=== PATIENT | male | born 1960 | race Asian ===

== ENCOUNTER 2019-05-03 14:31 | Inpatient (IN) | payer OTHER ==
[~2019-05-03] VITALS: Ht 167.6 cm; Wt 74.4 kg
[2019-05-03 14:37] VITALS: BP 149/80
[2019-05-03 15:37] LABS: EOSINOPHILS % (AUTO) 0.8 % (0.0-3.0); HEMATOCRIT 45.5 % (42.0-52.0); HEMOGLOBIN 15.2 G/DL (14.2-18.0); LYMPHOCYTES % (AUTO) 15.8 % (20.0-45.0); MEAN CORPUSCULAR VOLUME 91 FL (80-99); MONOCYTES % (AUTO) 7.6 % (1.0-10.0); NEUTROPHILS % (AUTO) 74.8 % (45.0-75.0); PLATELET COUNT 252 K/UL (150-450); RED BLOOD COUNT 4.99 M/UL (4.70-6.10); RED CELL DISTRIBUTION WIDTH 11.8 % (11.6-14.8); WHITE BLOOD COUNT 10.6 K/UL (4.8-10.8)
[2019-05-03 15:54] LABS: ANION GAP 7 mmol/L (5-15); BLOOD UREA NITROGEN 12 mg/dL (7-18); CALCIUM 8.6 MG/DL (8.5-10.1); CARBON DIOXIDE 31 MMOL/L (21-32); CHLORIDE 104 MMOL/L (98-107); CREATININE 1.2 MG/DL (0.55-1.30); POTASSIUM 4.3 MMOL/L (3.5-5.1); SODIUM 142 MMOL/L (136-145)
[2019-05-03 15:56] LABS: APPEARANCE,URINE CLEAR; BILIRUBIN, URINE NEGATIVE (NEGATIVE); COLOR,URINE PALE YELLOW; GLUCOSE, URINE (UA) NEGATIVE (NEGATIVE); KETONES,URINE 2+ (NEGATIVE); LEUKOCYTE ESTERASE ,URINE NEGATIVE (NEGATIVE); NITRITE,URINE NEGATIVE (NEGATIVE); PH,URINE 5 (4.5-8.0); PROTEIN,URINE NEGATIVE (NEGATIVE); UROBILINOGEN,URINE NORMAL MG/DL (0.0-1.0)
[2019-05-03 15:59] LABS: ALANINE AMINOTRANSFERASE 30 U/L (12-78); ALBUMIN 3.8 G/DL (3.4-5.0); ALBUMIN/GLOBULIN RATIO 1.1 (1.0-2.7); ALKALINE PHOSPHATASE 76 U/L (46-116); ASPARTATE AMINO TRANSFERASE 21 U/L (15-37); BILIRUBIN,TOTAL 0.5 MG/DL (0.2-1.0)
[2019-05-03 17:15] VITALS: BP 151/87
--- NOTE | 2019-05-03 18:26 | Diagnostic Imaging Report ---
Indication: Bilateral leg pain and weakness for 2 days Technique: Sagittal T1 and T2 fast spin echo, sagittal STIR, axial T1 and T2 fast spin-echo images of the lumbar spine Comparison: none Findings: The vertebral body marrow signal is normal. Vertebral body heights are preserved. Bony alignment is normal. The disc spaces are preserved. Conus medullaris terminates at L1. There is minimal circumferential annular bulge of the L5-S1 disc. There is a focal high intensity zone posteriorly. The bulging disc does not result in any significant spinal canal stenosis. The neural foramina are preserved At the remaining disc levels, no significant disc bulge or protrusion, spinal stenosis, or neural foraminal stenosis. 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
--- NOTE | 2019-05-03 19:07 | Emergency Room Report ---
History of Present Illness General Chief Complaint: General Complaint Source: EMS Present Illness HPI 58-year-old male presents ED for evaluation. Brought in from home for generalized weakness. States he feels weak primarily in his lower legs. Right more than left. States he is unable to walk and falls if he tries to walk. Denies any back pain. Notes history of fibromyalgia but denies any pain at this point. Denies fevers or chills. Denies slurred speech or facial droop. No other aggravating relieving factors. Denies any other associated symptoms Allergies: Coded Allergies: No Known Allergies (Unverified , 05/03/19) Patient History Past Medical History: none Past Surgical History: none Pertinent Family History: none Social History: Denies: smoking, alcohol use, drug use Immunizations: UTD Reviewed Nursing Documentation: PMH: Agreed; PSxH: Agreed Nursing Documentation-PMH Past Medical History: No History, Except For Review of Systems All Other Systems: negative except mentioned in HPI Physical Exam Vital Signs Date Time Temp Pulse Resp B/P (MAP) Pulse Ox O2 Delivery O2 Flow Rate FiO2 05/03/19 14:26 98.8 76 16 150/76 (100) 98 Room Air Sp02 EP Interpretation: reviewed, normal General Appearance: no apparent distress, alert, GCS 15, non-toxic Head: normocephalic, atraumatic Eyes: bilateral eye normal inspection, bilateral eye PERRL ENT: hearing grossly normal, normal pharynx, no angioedema, normal voice Neck: full range of motion, supple/symm/no masses Respiratory: chest non-tender, lungs clear, normal breath sounds, speaking full sentences Cardiovascular #1: regular rate, rhythm, no edema Cardiovascular #2: 2+ carotid (R), 2+ carotid (L), 2+ radial (R), 2+ radial (L) , 2+ dorsalis pedis (R), 2+ dorsalis pedis (L) Gastrointestinal: normal bowel sounds, non tender, soft, non-distended, no guarding, no rebound Rectal: deferred Genitourinary: normal inspection, no CVA tenderness Musculoskeletal: back normal, normal range of motion, gait/station normal, non- tender Neurologic: alert, oriented x3, sensory intact, motor weakness - 3/5 strength RLE, responsive, speech normal Psychiatric: judgement/insight normal, memory normal, mood/affect normal, no suicidal/homicidal ideation Reflexes: 3+ bicep (R), 3+ bicep (L), 3+ tricep (R), 3+ tricep (L), 3+ knee (R) , 3+ knee (L) Skin: other - see nursing skin notes Lymphatic: no adenopathy Medical Decision Making Diagnostic Impression: Primary Impression: Right leg weakness Additional Impression: Unsteady gait ER Course Hospital Course 58 yo M presents with RLE weakness. unable to walk Differential diagnoses include: cord compession, spinal stenosis, dehydration Clinical course Patient placed on stretcher. hall monitor. After initial history and physical I ordered labs, IV fluids, MRI L spine Labs - no leukocytosis, Hb/Hct stable. electrolytes ok. MRI L spine shows disk bulging, no cord compression patient is still unable to bear weight on right lower extremity. Unsteady gait. Has noticeable neurological deficit. Not safe for discharge. [facility] Case discussed with Dr. Lujan and he agreed to accept the patient to his service for further care and support I feel this is a highly complex case requiring extensive working including EKG/ Rhythm strip, Xray/CT/US, Blood/urine lab work, repeat exams while in ED, and administration of strong opiates/narcotics for pain control, admission to hospital or close patient follow up. Diagnosis - R leg weakness, unsteady gait Patient admitted to floor in serious condition Labs Test 05/03/19 15:10 05/03/19 15:44 White Blood Count 10.6 K/UL (4.8-10.8) Red Blood Count 4.99 M/UL (4.70-6.10) Hemoglobin 15.2 G/DL (14.2-18.0) Hematocrit 45.5 % (42.0-52.0) Mean Corpuscular Volume 91 FL (80-99) Mean Corpuscular Hemoglobin 30.5 PG (27.0-31.0) Mean Corpuscular Hemoglobin Concent 33.5 G/DL (32.0-36.0) Red Cell Distribution Width 11.8 % (11.6-14.8) Platelet Count 252 K/UL (150-450) Mean Platelet Volume 7.5 FL (6.5-10.1) Neutrophils (%) (Auto) 74.8 % (45.0-75.0) Lymphocytes (%) (Auto) 15.8 % (20.0-45.0) Monocytes (%) (Auto) 7.6 % (1.0-10.0) Eosinophils (%) (Auto) 0.8 % (0.0-3.0) Basophils (%) (Auto) 1.0 % (0.0-2.0) Sodium Level 142 MMOL/L (136-145) Potassium Level 4.3 MMOL/L (3.5-5.1) Chloride Level 104 MMOL/L (98-107) Carbon Dioxide Level 31 MMOL/L (21-32) Anion Gap 7 mmol/L (5-15) Blood Urea Nitrogen 12 mg/dL (7-18) Creatinine 1.2 MG/DL (0.55-1.30) Estimat Glomerular Filtration Rate > 60 mL/min (>60) Glucose Level 101 MG/DL (74-106) Calcium Level 8.6 MG/DL (8.5-10.1) Total Bilirubin 0.5 MG/DL (0.2-1.0) Aspartate Amino Transf (AST/SGOT) 21 U/L (15-37) Alanine Aminotransferase (ALT/SGPT) 30 U/L (12-78) Alkaline Phosphatase 76 U/L (46-116) Total Protein 7.2 G/DL (6.4-8.2) Albumin 3.8 G/DL (3.4-5.0) Globulin 3.4 g/dL Albumin/Globulin Ratio 1.1 (1.0-2.7) Urine Color Pale yellow Urine Appearance Clear Urine pH 5 (4.5-8.0) Urine Specific [place] 1.010 (1.005-1.035) Urine Protein Negative (NEGATIVE) Urine Glucose (UA) Negative (NEGATIVE) Urine Ketones 2+ (NEGATIVE) Urine Blood Negative (NEGATIVE) Urine Nitrite Negative (NEGATIVE) Urine Bilirubin Negative (NEGATIVE) Urine Urobilinogen Normal MG/DL (0.0-1.0) Urine Leukocyte Esterase Negative (NEGATIVE) CT/MRI/US Diagnostic Results CT/MRI/US Diagnostic Results : Imaging Test Ordered: MRI L spine Impression No acute fracture identified. Mild facet degenerative changes and ligamentum flavum hypertrophy throughout the lumbar spine. Annular fissure at L5-S1. Mild disc bulge at L5-S1. No significant spinal canal stenosis. Mild bilateral neural foraminal stenoses at L4-5. Conus medullaris terminates normally at the level of T12-L1. Last Vital Signs Date Time Temp Pulse Resp B/P (MAP) Pulse Ox O2 Delivery O2 Flow Rate FiO2 05/03/19 17:15 98.6 84 20 151/87 96 Room Air Status: unchanged Disposition: ADMITTED INPATIENT Condition: Serious Referrals: NOT CHOSEN IPA/,REFERRING (PCP) Domingo Muniz MD May 03, 2019 19:07
[2019-05-03 21:00] VITALS: BP 145/79
[2019-05-03] MEDS ORDERED: Morphine Sulfate 2mg/ml Inj(IV/IM USE ONLY) IVP PRN (21:30)
[2019-05-03] MEDS: D5 1/2NS 1,000 ML IV SCH (22:01)
[2019-05-04] VITALS: BP 131/65
[2019-05-04 04:00] VITALS: BP 125/76
[2019-05-04 07:16] LABS: BASOPHILS % (AUTO) 1.1 % (0.0-2.0); EOSINOPHILS % (AUTO) 2.3 % (0.0-3.0); HEMATOCRIT 44.3 % (42.0-52.0); HEMOGLOBIN 15.2 G/DL (14.2-18.0); LYMPHOCYTES % (AUTO) 23.2 % (20.0-45.0); MEAN CORPUSCULAR VOLUME 89 FL (80-99); MONOCYTES % (AUTO) 9.3 % (1.0-10.0); NEUTROPHILS % (AUTO) 64.1 % (45.0-75.0); PLATELET COUNT 253 K/UL (150-450); RED BLOOD COUNT 4.95 M/UL (4.70-6.10); RED CELL DISTRIBUTION WIDTH 11.3 % (11.6-14.8); WHITE BLOOD COUNT 10.6 K/UL (4.8-10.8)
[2019-05-04 07:35] LABS: ANION GAP 6 mmol/L (5-15); BLOOD UREA NITROGEN 12 mg/dL (7-18); CALCIUM 8.4 MG/DL (8.5-10.1); CARBON DIOXIDE 29 MMOL/L (21-32); CHLORIDE 106 MMOL/L (98-107); POTASSIUM 3.7 MMOL/L (3.5-5.1); SODIUM 141 MMOL/L (136-145)
[2019-05-04 08:00] VITALS: BP 144/77
[2019-05-04] MEDS ORDERED: Methocarbamol 500mg tab ORAL PRN (09:15)
--- NOTE | 2019-05-04 09:15 | Consultation ---
History of Present Illness General Date patient seen: May 04, 2019 Chief Complaint: Present Illness Allergies: Coded Allergies: No Known Allergies (Unverified , 05/03/19) Patient History Healthcare decision maker N Resuscitation status Full Code Advanced Directive on File Physical Exam Last 24 Hour Vital Signs Date Time Temp Pulse Resp B/P (MAP) Pulse Ox O2 Delivery O2 Flow Rate FiO2 05/04/19 04:00 98.3 54 20 125/76 (92) 97 05/04/19 00:00 98.7 60 19 131/65 (87) 96 05/03/19 23:25 Room Air 05/03/19 21:00 98.2 56 18 145/79 (101) 96 05/03/19 20:42 98.6 84 20 151/87 96 Room Air 05/03/19 17:15 98.6 84 20 151/87 96 Room Air 05/03/19 14:37 98.2 79 15 149/80 99 Room Air 05/03/19 14:34 79 15 Room Air 05/03/19 14:26 98.8 76 16 150/76 (100) 98 Room Air Intake and Output 05/03/19 05/04/19 19:00 07:00 Intake Total 1000 ml 780 ml Balance 1000 ml 780 ml Intake Oral 0 ml 300 ml IV Total 1000 ml 480 ml # Voids 1 # Bowel Movements 1 Laboratory Tests Test 05/03/19 15:10 05/03/19 15:44 05/04/19 05:28 White Blood Count 10.6 K/UL (4.8-10.8) 10.6 K/UL (4.8-10.8) Red Blood Count 4.99 M/UL (4.70-6.10) 4.95 M/UL (4.70-6.10) Hemoglobin 15.2 G/DL (14.2-18.0) 15.2 G/DL (14.2-18.0) Hematocrit 45.5 % (42.0-52.0) 44.3 % (42.0-52.0) Mean Corpuscular Volume 91 FL (80-99) 89 FL (80-99) Mean Corpuscular Hemoglobin 30.5 PG (27.0-31.0) 30.8 PG (27.0-31.0) Mean Corpuscular Hemoglobin Concent 33.5 G/DL (32.0-36.0) 34.4 G/DL (32.0-36.0) Red Cell Distribution Width 11.8 % (11.6-14.8) 11.3 % (11.6-14.8) L Platelet Count 252 K/UL (150-450) 253 K/UL (150-450) Mean Platelet Volume 7.5 FL (6.5-10.1) 7.8 FL (6.5-10.1) Neutrophils (%) (Auto) 74.8 % (45.0-75.0) 64.1 % (45.0-75.0) Lymphocytes (%) (Auto) 15.8 % (20.0-45.0) L 23.2 % (20.0-45.0) Monocytes (%) (Auto) 7.6 % (1.0-10.0) 9.3 % (1.0-10.0) Eosinophils (%) (Auto) 0.8 % (0.0-3.0) 2.3 % (0.0-3.0) Basophils (%) (Auto) 1.0 % (0.0-2.0) 1.1 % (0.0-2.0) Sodium Level 142 MMOL/L (136-145) 141 MMOL/L (136-145) Potassium Level 4.3 MMOL/L (3.5-5.1) 3.7 MMOL/L (3.5-5.1) Chloride Level 104 MMOL/L (98-107) 106 MMOL/L (98-107) Carbon Dioxide Level 31 MMOL/L (21-32) 29 MMOL/L (21-32) Anion Gap 7 mmol/L (5-15) 6 mmol/L (5-15) Blood Urea Nitrogen 12 mg/dL (7-18) 12 mg/dL (7-18) Creatinine 1.2 MG/DL (0.55-1.30) 1.0 MG/DL (0.55-1.30) Estimat Glomerular Filtration Rate > 60 mL/min (>60) > 60 mL/min (>60) Glucose Level 101 MG/DL (74-106) 90 MG/DL (74-106) Calcium Level 8.6 MG/DL (8.5-10.1) 8.4 MG/DL (8.5-10.1) L Total Bilirubin 0.5 MG/DL (0.2-1.0) Aspartate Amino Transf (AST/SGOT) 21 U/L (15-37) Alanine Aminotransferase (ALT/SGPT) 30 U/L (12-78) Alkaline Phosphatase 76 U/L (46-116) Total Protein 7.2 G/DL (6.4-8.2) Albumin 3.8 G/DL (3.4-5.0) Globulin 3.4 g/dL Albumin/Globulin Ratio 1.1 (1.0-2.7) Urine Color Pale yellow Urine Appearance Clear Urine pH 5 (4.5-8.0) Urine Specific [place] 1.010 (1.005-1.035) Urine Protein Negative (NEGATIVE) Urine Glucose (UA) Negative (NEGATIVE) Urine Ketones 2+ (NEGATIVE) H Urine Blood Negative (NEGATIVE) Urine Nitrite Negative (NEGATIVE) Urine Bilirubin Negative (NEGATIVE) Urine Urobilinogen Normal MG/DL (0.0-1.0) Urine Leukocyte Esterase Negative (NEGATIVE) Height (Feet): 5 Height (Inches): 6.00 Weight (Pounds): 164 Medications Current Medications Medications (Trade) Dose Ordered Sig/Elisa Route PRN Reason Start Time Stop Time Status Last Admin Dose Admin Dextrose/Sodium Chloride 1,000 ml @ 60 mls/hr [id number] IV 05/03/19 21:30 06/02/19 21:29 05/03/19 22:01 Morphine Sulfate (Morphine Sulfate) 2 mg Q4H PRN IVP Moderate Pain (Pain Scale 4-6) 05/03/19 21:30 05/10/19 21:29 Assessment/Plan Assessment/Plan: (1) Lumbar Disc bulge (2) Lumbar Radiculopathy (3) Annular Fissure seen dictated Jose D Rosario May 04, 2019 09:15
[2019-05-04 12:00] VITALS: BP 155/77
[2019-05-04] MEDS: D5 1/2NS 1,000 ML IV SCH (14:08)
--- NOTE | 2019-05-04 14:45 | Consultation ---
DATE OF CONSULTATION: 05/04/2019 PAIN MANAGEMENT CONSULTATION CONSULTING PHYSICIAN: Betty Dixon M.D. REFERRING PHYSICIAN: Oscar Lujan D.O. PHYSICIAN REHABILITATION THERAPIST: Diane Noe CHIEF COMPLAINT: Right lower extremity weakness. HISTORY OF PRESENT ILLNESS: This is a 58-year-old male, who has been seen on the Med[facility]Surg floor of [facility] for initial pain management consultation. The patient was admitted under the care of Dr. Lujan with complaints of right lower extremity weakness and inability to ambulate, which he says started about 2 days ago. It has been off and on and acute, which he says at times had shooting burning pain down his right lower extremity, which is increased with walking and is reduced with rest. The patient denies any recent trauma or any recent injury and says about 2 days ago, tried to walk and felt a shooting burning pain down into his right lower extremity. No complaints of low back pain and that has dissipated at this time and is able to walk more and is walking to the bathroom in his room. 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 At this time, the patient is in bed. Denies any pain. Still has some right lower extremity weakness. He was on morphine 2 mg IV every 4 hours, which he has not requested due to not having any pain. MRI of the lumbar spine was ordered as per the ER physician showing no acute fracture identified. Mild facet degenerative changes. Ligamentum flavum hypertrophy throughout the lumbar spine. Annular fissure at L5-S1 with mild disc bulge at L5-S1. No significant spinal canal stenosis. Mild bilateral neural foraminal stenosis at L4-L5. At this time, discussed with the patient about his MRI. Advise the patient to do extensive physical therapy to strengthen up his core and back muscles and we will discontinue the morphine and start the patient on Neurontin 100 mg 3 times a day, Robaxin 500 mg tablet every 8 hours as needed for muscle spasm. The patient seems to understand and he has no other complaints at this time. PAST MEDICAL HISTORY: Aspiration, CMI, fibromyalgia, Clinch War syndrome, chronic fatigue. PAST SURGICAL HISTORY: Denies. SOCIAL HISTORY: Denies smoking tobacco, drinking alcohol, or IV drug abuse. ALLERGIES: No known drug allergies. MEDICATIONS: Aspirin. REVIEW OF SYSTEMS: Denies rash, fever, chills, sweating, dizziness, drowsiness, blurred vision, sore throat, change in hearing or weight. No shortness of breath or chest pain, palpitations, or cough. No nausea, vomiting, diarrhea, or blood in the stool or urine. No dysuria. PHYSICAL EXAMINATION: GENERAL: Alert, awake, and oriented. VITAL SIGNS: Blood pressure 125/76, heart rate is 64, oxygen saturation 98%, respiratory rate is 20, temperature is 98.3 degrees Fahrenheit. HEENT: PERRLA. NECK: Range of motion is full in all directions. No tenderness to paracervical muscles. No adenopathy. LUNGS: Decreased breath sounds bilaterally. HEART: S1 and S2 regular. ABDOMEN: Soft, nontender. BACK: Range of motion is full on flexion, extension with slight tenderness to the right lower back and paraspinal muscles. EXTREMITIES: Upper and lower extremity range of motion is reduced due to the patient's condition. Motor on the right lower extremity is - 5/5 in all muscles. Left lower extremity motor is 5/5 in all muscles. No cyanosis. No clubbing. No edema. Sensory is intact. Reflexes are not obtainable. No adenopathy. ASSESSMENT AND PLAN: This is a 58-year-old male with lumbar disc bulge, lumbar radiculopathy, annular fissure. The patient will be discontinued off the morphine, started on Tylenol 650 mg tablet every 4 hours as needed for pain, Robaxin 500 mg tablet every 8 hours as needed for muscle spasm, gabapentin 100 mg tablet 3 times a day. We recommend the patient to have extensive physical therapy to strengthen his core and back muscles. The patient was discussed with Dr. Dixon and he concurred. We will follow the patient. Thank you very much for the courtesy of this consultation. Betty Dixon M.D. ESTELA Noe DR: JENNA JOB#: [id number] CC:
[2019-05-04 16:00] VITALS: BP 150/79
--- NOTE | 2019-05-04 16:15 | History and Physical Report ---
DATE OF ADMISSION: 05/03/2019 TIME SEEN: 11 a.m. CONSULTANTS: 1. . 2. Betty Dixon M.D. CHIEF COMPLAINT: Right leg weakness, fibromyalgia, protruding disk. BRIEF HISTORY: This is a 58-year-old male from home presented with above-mentioned diagnoses, usually goes to [place], last time was about 3 months ago. The patient came to [place], diagnosed with the above, admitted to medical floor for further treatment. Currently calm in bed. No complaint. No chest pain. No shortness of breath. No nausea, vomiting, or diarrhea. PAST MEDICAL HISTORY: Includes fibromyalgia and hypertension. PAST SURGICAL HISTORY: None. MEDICATIONS: Tylenol, gabapentin, methocarbamol, morphine. ALLERGIES: Denies. SOCIAL HISTORY: No smoking. No alcohol. No intravenous drug abuse. FAMILY HISTORY: Noncontributory. PHYSICAL EXAMINATION: GENERAL: Calm in bed, oriented x3, no acute distress. VITAL SIGNS: Temperature 98 degrees, pulse 68, respiratory rate 20, blood pressure 144/77. CARDIOVASCULAR: No murmur. LUNGS: Distant and clear. ABDOMEN: Positive bowel sound positive. Nontender. Nondistended. EXTREMITIES: No cyanosis or edema. NEUROLOGIC: The patient moves all extremities, slightly weak. LABORATORY DATA: Labs, at this time CBC is normal. BMP shows calcium 8.4. Urinalysis show 2+ ketones. ASSESSMENT: 1. Right leg weakness. 2. Fibromyalgia. 3. Protruding disk. 4. Hypertension. PLAN: 1. Blood pressure and pain control. 2. Dietary followup. 3. Neurology followup. 4. PT and dietary evaluation. 5. CBC and BMP in the morning. 6. Discharge planning. Oscar Lujan D.O. DR: Shayla JOB#: [id number] CC:
[2019-05-04 20:00] VITALS: BP 105/70
[2019-05-05] VITALS: BP 146/79
[2019-05-05 04:00] VITALS: BP 111/62
[2019-05-05] MEDS: D5 1/2NS 1,000 ML IV SCH ×2 (05:52→20:47)
[2019-05-05 08:00] VITALS: BP 157/94
--- NOTE | 2019-05-05 08:59 | General Progress Note ---
Assessment/Plan Assessment/Plan: (1) Lumbar Disc bulge (2) Lumbar Radiculopathy (3) Annular Fissure Pt to be continued on Neurontin, Robaxin and Tylenol D/w Dr. Dixon and he concurred. Subjective Date patient seen: May 05, 2019 Time patient seen: 08:00 - am Allergies: Coded Allergies: No Known Allergies (Unverified , 05/03/19) Subjective REVIEW OF SYSTEMS: Denies rash, fever, chills, sweating, dizziness, drowsiness, blurred vision, sore throat, change in hearing or weight. No shortness of breath or chest pain, palpitations, or cough. No nausea, vomiting, diarrhea, or blood in the stool or urine. No dysuria. SUBJECTIVE: Patient is in bed and showing no signs of pain or distress. He says that he has been able walk to the restroom. Feels that the Neurontin has helped. No new complaints at this time. Objective Last 24 Hour Vital Signs Date Time Temp Pulse Resp B/P (MAP) Pulse Ox O2 Delivery O2 Flow Rate FiO2 05/05/19 04:00 97.9 50 17 111/62 (78) 96 05/05/19 00:00 97.7 51 18 146/79 (101) 96 05/04/19 21:00 Room Air 05/04/19 20:00 98.4 78 18 105/70 (82) 97 05/04/19 16:00 99.1 62 18 150/79 (102) 98 05/04/19 12:00 98.5 60 18 155/77 (103) 96 05/04/19 09:00 Room Air Intake and Output 05/04/19 05/05/19 19:00 07:00 Intake Total 1700 ml 720 ml Balance 1700 ml 720 ml Intake Oral 980 ml IV Total 720 ml 720 ml # Voids 5 4 # Bowel Movements 1 Height (Feet): 5 Height (Inches): 6.00 Weight (Pounds): 164 Objective GENERAL: Alert, awake, and oriented. LUNGS: Decreased breath sounds bilaterally. HEART: S1 and S2 regular. ABDOMEN: Soft, nontender. EXTREMITIES: No cyanosis. No clubbing. No edema. NEURO: No changes. Jose D Rosario May 05, 2019 08:59
--- NOTE | 2019-05-05 09:45 | General Progress Note ---
Assessment/Plan Problem List: (1) Unsteady gait ICD Codes: R26.81 - Unsteadiness on feet SNOMED: 693563183, [id number] (2) Right leg weakness ICD Codes: R29.898 - Other symptoms and signs involving the musculoskeletal system SNOMED: 237699094, [id number] Status: stable, progressing Assessment/Plan: pt diet neuro eval cbc bmp am transfer vs dc if clear Subjective Constitutional: Reports: weakness Allergies: Coded Allergies: No Known Allergies (Unverified , 05/03/19) All Systems: reviewed and negative except above Subjective calm in bed Objective Last 24 Hour Vital Signs Date Time Temp Pulse Resp B/P (MAP) Pulse Ox O2 Delivery O2 Flow Rate FiO2 05/05/19 04:00 97.9 50 17 111/62 (78) 96 05/05/19 00:00 97.7 51 18 146/79 (101) 96 05/04/19 21:00 Room Air 05/04/19 20:00 98.4 78 18 105/70 (82) 97 05/04/19 16:00 99.1 62 18 150/79 (102) 98 05/04/19 12:00 98.5 60 18 155/77 (103) 96 Intake and Output 05/04/19 05/05/19 19:00 07:00 Intake Total 1700 ml 720 ml Balance 1700 ml 720 ml Intake Oral 980 ml IV Total 720 ml 720 ml # Voids 5 4 # Bowel Movements 1 Height (Feet): 5 Height (Inches): 6.00 Weight (Pounds): 164 General Appearance: alert EENT: normal ENT inspection Neck: normal alignment Cardiovascular: normal peripheral pulses, normal rate, regular rhythm Respiratory/Chest: chest wall non-tender, lungs clear, normal breath sounds Extremities: normal inspection Edema: no edema noted Arm (L), no edema noted Arm (R), no edema noted Leg (L), no edema noted Leg (R), no edema noted Pedal (L), no edema noted Pedal (R), no edema noted Generalized Neurologic: responsive, motor weakness Skin: normal pigmentation, warm/dry Oscra Lujan DO May 05, 2019 09:45
[2019-05-05 12:00] VITALS: BP 153/93
[2019-05-05 16:00] VITALS: BP 130/73
[2019-05-05] MEDS ORDERED: Gadavist 7.5mMol/7.5ml vial IV PRN ×2 (19:15)
[2019-05-05 20:00] VITALS: BP 143/81
[2019-05-06] VITALS: BP 136/81
--- NOTE | 2019-05-06 04:30 | Consultation ---
DATE OF CONSULTATION: 05/05/2019 NEUROLOGICAL CONSULTATION CONSULTING PHYSICIAN: Mauro Gaona M.D. HISTORY OF PRESENT ILLNESS: This is a 58-year-old right-handed [place] man with a previous history of hypertension for 6 years, fibromyalgia since 2012, diagnosed at the [facility], tobacco abuse, quit in 2008 of about 7-1/2 pack years, who was admitted with right leg weakness. The patient had an unspecified gait problem prior to his admission. He had fibromyalgia, sometimes pain in his right leg. The patient on Wednesday began to have trouble walking, did not call his physician or see a doctor. The next day on Wednesday, he had "no balance" and had difficulty ambulating. He called the doctor on Wednesday. He told him to go to the emergency room. He did have some shooting pain in his leg from the foot to his hip and some lower back discomfort. Little to no neck discomfort or midback discomfort. He has never had it before. He denies any back injury. He has had ankle sprains in the past. The patient has had arm numbness, which is bilateral. He denies any headaches with this attack. There is no memory loss, seizures, or blackouts. He denies any loss of smell or taste, double vision, blurred vision, dysarthria, dysphagia, or hearing loss. He complains of tinnitus since Wednesday in both ears. There is no loss of bowel or bladder functioning or fever or chills. He complains of numbness in his right lateral leg and calf, which comes and goes with his fibromyalgia. He used to drink about 4 to 5 beers at a time and quit last year. He denies any illegal drug use. There is no family history of neurologic disease. PAST MEDICAL HISTORY/PAST MEDICAL ILLNESSES: 1. Fibromyalgia, diagnosed [place]. 2. Hypertension, see above. 3. Asthma as a child. 4. Anxiety disorder. He has a 50% disability for anxiety according to the [facility]. 5. Chronic fatigue syndrome. ALLERGIES: No known allergies. HABITS: See above. SOCIAL HISTORY: . He has one child, in good health. HISTORY: He was in the [employer] for 15-1/2 years with an honorable discharge. He is a staff sergeant. FAMILY HISTORY: His parents are alive. His mother and siblings are "okay." MEDICATIONS: Takes aspirin at home. REVIEW OF SYSTEMS: His appetite is good. He weighs 163 pounds and 5 feet 5 inches tall. The rest of the review of systems is noncontributory. No chest pain, palpitation, shortness of breath, chronic cough, or hemoptysis. He denies any abdominal pain, abnormal bowel movements, diarrhea or constipation. No pus or blood in his urine or kidney stones. Psychiatric review of systems, see above. Neurologic review of systems, see above. Hematology/Oncology review of systems, . LABORATORY DATA: On admission, his chemistries were normal on 05/03/2019. On 05/04/2019, his calcium was slightly low. CBC was grossly within normal with normal white count, hemoglobin, and platelet count. He had a lumbar spine MRI on 05/04/2019, which revealed minimal circumferential annular bulge of the L5-S1 disc. There is no significant spinal or neural foraminal stenosis. He had a left . PHYSICAL EXAMINATION: GENERAL: He is a well-developed, well-nourished, overweight man, lying in bed, in no acute distress. VITAL SIGNS: Blood pressure is 130/73, pulse is 59 and regular, and temperature is 99.4 degrees. HEENT: Examination of the head, ears, eyes, nose, mouth, and throat revealed dentures. NECK: There is minimal posterior cervical tenderness. Minimal limitation of motion. Carotids are +2 without any bruits. LUNGS: His breath sounds are decreased, but clear bilaterally. CARDIOVASCULAR: The heart tones are decreased. No murmurs, rubs, S3, or S4 noted. ABDOMEN: Obese. Bowel sounds intact. There is no tenderness, masses, or organomegaly. BACK: There is no tenderness to percussion. No muscle spasm. EXTREMITIES: Normal. NEUROLOGIC: MENTAL STATUS: He is alert and awake. His judgment, he would put the letter in the mailbox. Affect was appropriate. Memory, past memory was intact to his birthday 1960. Immediate recall was 3/3 objects. Recent recall was 3/3 objects in 5 minutes. Intellect, similarities were abstractive, i.e., bicycle and train "for transportation." Watch and ruler "you can measure them." Orientation - time, he knew it is 05/05/2019 and it was Wednesday. Place, he knew he is at [facility], fourth floor. Person, he is oriented to person. Language function, spoken speech was fluent without paraphasias. There was no right left confusion or finger agnosia. Repetition and comprehension were intact. CRANIAL NERVE EXAMINATION: CRANIAL NERVE II: Visual zapata are intact to confrontation. Fundi not visualized. CRANIAL NERVES III, IV, AND : Extraocular motility was full. Left pupil is about 5 mm and round. Right pupil is about 4 mm to 4.5 mm and round, both light reactive. CRANIAL NERVE V: Facial and corneal sensation were intact to fine touch. CRANIAL NERVE VII: Facial strength is symmetrical bilaterally. CRANIAL NERVE VIII: Auditory acuity was intact bilaterally. CRANIAL NERVES IX AND X: Gag was intact bilaterally. CRANIAL NERVE XI: Sternocleidomastoid strength is 5/5. CRANIAL NERVE XII: Tongue protrudes in the midline without fasciculation. There is a minimal tremor. MUSCLE EXAMINATION: Muscle bulk and tone are normal. Strength is 5/5 proximally and distally in the upper extremities. His lower extremities, he had 4/5 strength in the right lower extremity in upper motor nerve distribution. Has 4/5 strength in the left lower extremity in the left motor nerve distribution. REFLEXES: Biceps and brachioradialis +1 bilaterally, triceps +3 bilaterally. Knee reflexes are +3 bilaterally. Ankle reflexes are +2-1/2 bilaterally. An upgoing toe on the right and an indefinite toe sign on the left on testing for Babinski response. He did have some crossed adductor reflexes. COORDINATION: [id number] and [id number] testing are basically intact given the weakness in his legs. Rapid alternating movements were normal. GAIT AND STATION: Not tested. SENSORY EXAMINATION: Proprioception appeared to be intact. Fine touch as far as I can tell was normal. He had decreased pinprick in the entire left leg going up to the left chest up to about T4 and T2. Pinprick is normal in the right lower extremity and on the chest area; however, he had decreased pinprick with a "rubbery feeling" in his hands in the glove distribution above the wrist. IMPRESSION: I believe this patient has a myelopathy, otherwise he has a spinal cord lesion, probably as high as cervical spine, we will get an MRI scan of the thoracic spine. It could be related to cervical disc disease with compression of the spinal cord, although he does not have much neck pain. 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 The lesion is probably more on the right side of the cord than the left. It was probably in the lower cervical cord around C6 given the hyperreflexia and triceps reflexes and entered C7. Ischemia of the cord is a possibility, spinal cord tumor, either metastatic or primary to the spinal cord is much less likely. Cord compression from the tumor or abscess is also unlikely. The patient should use a cervical collar and wear it until the MRI scans are finished. If the patient does have a cord compression, then he will need a neurosurgical orthopedic spine evaluation and treatment. I am also going to obtain B12, methylmalonic acid level, and serum copper level, although the patient's cord lesion does not fit these two problems. HIV, myelopathy, multiple sclerosis, I think are much less likely. Dural AVM tend to be more likely in the lower thoracic spinal cord. PLAN: 1. MRI scans of the cervical and thoracic spinal cord. 2. Cervical collar. 3. B12 and methylmalonic acid level. 4. Serum copper level. 5. I will speak to you about this case. Thank you for this interesting case, Dr. Lujan. Mauro Gaona MD DR: MAMTA JOB#: [id number] CC:
[2019-05-06 04:42] VITALS: BP 132/74
[2019-05-06 07:35] LABS: BASOPHILS % (AUTO) 0.8 % (0.0-2.0); EOSINOPHILS % (AUTO) 2.7 % (0.0-3.0); HEMATOCRIT 45.9 % (42.0-52.0); HEMOGLOBIN 15.7 G/DL (14.2-18.0); LYMPHOCYTES % (AUTO) 22.1 % (20.0-45.0); MEAN CORPUSCULAR VOLUME 90 FL (80-99); MONOCYTES % (AUTO) 9.6 % (1.0-10.0); NEUTROPHILS % (AUTO) 64.7 % (45.0-75.0); PLATELET COUNT 254 K/UL (150-450); RED BLOOD COUNT 5.13 M/UL (4.70-6.10); RED CELL DISTRIBUTION WIDTH 11.6 % (11.6-14.8); WHITE BLOOD COUNT 10.5 K/UL (4.8-10.8)
[2019-05-06 07:47] LABS: ANION GAP 8 mmol/L (5-15); BLOOD UREA NITROGEN 11 mg/dL (7-18); CALCIUM 8.4 MG/DL (8.5-10.1); CARBON DIOXIDE 28 MMOL/L (21-32); CHLORIDE 105 MMOL/L (98-107); CREATININE 1.1 MG/DL (0.55-1.30); POTASSIUM 3.6 MMOL/L (3.5-5.1); SODIUM 141 MMOL/L (136-145)
[2019-05-06 08:00] VITALS: BP 146/82
--- NOTE | 2019-05-06 09:37 | General Progress Note ---
Assessment/Plan Problem List: (1) Unsteady gait ICD Codes: R26.81 - Unsteadiness on feet SNOMED: 453963791, [id number] (2) Right leg weakness ICD Codes: R29.898 - Other symptoms and signs involving the musculoskeletal system SNOMED: 868047327, 24916006 Status: stable, progressing Assessment/Plan: pt diet neuro eval cbc bmp am dc if clear Subjective Constitutional: Reports: weakness Allergies: Coded Allergies: No Known Allergies (Unverified , 05/03/19) All Systems: reviewed and negative except above Subjective calm in bed Objective Last 24 Hour Vital Signs Date Time Temp Pulse Resp B/P (MAP) Pulse Ox O2 Delivery O2 Flow Rate FiO2 05/06/19 04:42 98.5 51 18 132/74 (93) 98 05/06/19 00:00 98.1 55 18 136/81 (99) 96 05/05/19 21:00 Room Air 05/05/19 20:00 98.1 68 18 143/81 (101) 96 05/05/19 16:00 99.4 59 19 130/73 (92) 95 05/05/19 12:00 99.4 65 19 153/93 (113) 96 Intake and Output 05/05/19 05/06/19 19:00 07:00 Intake Total 1000 ml 2580 ml Output Total 1200 ml Balance 1000 ml 1380 ml Intake Oral 980 ml IV Total 600 ml Other 1000 ml 1000 ml Output Urine Total 1200 ml # Voids 2 # Bowel Movements 1 Laboratory Tests 05/05/19 19:50: Vitamin B12 Level 274 05/06/19 06:30: White Blood Count 10.5, Red Blood Count 5.13, Hemoglobin 15.7, Hematocrit 45.9, Mean Corpuscular Volume 90, Mean Corpuscular Hemoglobin 30.6, Mean Corpuscular Hemoglobin Concent 34.2, Red Cell Distribution Width 11.6, Platelet Count 254, Mean Platelet Volume 8.0, Neutrophils (%) (Auto) 64.7, Lymphocytes (%) (Auto) 22.1, Monocytes (%) (Auto) 9.6, Eosinophils (%) (Auto) 2.7, Basophils (%) (Auto ) 0.8, Sodium Level 141, Potassium Level 3.6, Chloride Level 105, Carbon Dioxide Level 28, Anion Gap 8, Blood Urea Nitrogen 11, Creatinine 1.1, Estimat Glomerular Filtration Rate > 60, Glucose Level 95, Calcium Level 8.4L Height (Feet): 5 Height (Inches): 6.00 Weight (Pounds): 164 General Appearance: alert EENT: normal ENT inspection Neck: normal alignment Cardiovascular: normal peripheral pulses, normal rate, regular rhythm Respiratory/Chest: chest wall non-tender, lungs clear, normal breath sounds Abdomen: normal bowel sounds, non tender, soft Extremities: normal inspection Edema: no edema noted Arm (L), no edema noted Arm (R), no edema noted Leg (L), no edema noted Leg (R), no edema noted Pedal (L), no edema noted Pedal (R), no edema noted Generalized Neurologic: responsive, motor weakness Skin: normal pigmentation, warm/dry Oscar Lujan DO May 06, 2019 09:37
[2019-05-06 12:00] VITALS: BP 148/80
[2019-05-06] MEDS: D5 1/2NS 1,000 ML IV SCH (17:34)
[2019-05-06 20:00] VITALS: BP 163/83
[2019-05-07] VITALS: BP 133/80
--- NOTE | 2019-05-07 00:41 | Diagnostic Imaging Report ---
EXAM: MR Thoracic Spine Without and With Intravenous Contrast CLINICAL HISTORY: WEAK TECHNIQUE: Magnetic resonance images of the thoracic spine without and with intravenous contrast in multiple planes. COMPARISON: No relevant prior studies available. FINDINGS: Vertebrae: Unremarkable. No acute fracture. Discs/spinal canal/neural foramina: Mild degenerative changes. No spinal canal stenosis. Spinal cord: Normal signal. No abnormal enhancement. Soft tissues: Unremarkable. IMPRESSION: No acute findings.
--- NOTE | 2019-05-07 00:46 | Diagnostic Imaging Report ---
EXAM: MR Cervical Spine Without and With Intravenous Contrast CLINICAL HISTORY: WEAK TECHNIQUE: Magnetic resonance images of the cervical spine without and with intravenous contrast in multiple planes. COMPARISON: No relevant prior studies available. FINDINGS: Patient has a developmentally narrow spinal canal. Vertebral elements: Normal vertebral body height and alignment. Discs: Multilevel disc desiccation with mild disc height loss at C6-7. Marrow signal: Opposing endplate edema at C4-5. Cord: Cord signal abnormality at C4-5. Soft tissues: Mild edema around the facet joints at C4-5. Trace prevertebral edema from C2-C5. Enhancement: There is enhancement around the facet joints around C4-5. There is epidural enhancement from C3-C5 circumferentially. C2-3: Mild spinal canal stenosis secondary to posterior disc osteophyte complex and ligamentum flavum redundancy. Mild left foraminal stenosis. Left greater than right facet arthrosis. C3-4: Moderate spinal canal stenosis secondary to posterior disc osteophyte complex and ligamentum flavum redundancy. Severe left and moderate right foraminal stenosis secondary to uncovertebral upper clear facet arthrosis. C4-5: Severe spinal canal stenosis secondary to posterior disc osteophyte complex ligamentum flavum redundancy. Severe bilateral foraminal stenosis secondary to uncovertebral hypertrophy and facet arthrosis. C5-6: Mild spinal canal stenosis secondary to posterior disc osteophyte complex ligamentum flavum redundancy. Mild bilateral foraminal stenosis secondary to uncovertebral hypertrophy and facet arthrosis. C6-7: Mild spinal canal stenosis secondary to posterior disc osteophyte complex ligamentum flavum redundancy. Severe right and mild left foraminal stenosis secondary to uncovertebral hypertrophy and facet arthrosis. C7-T1: Central posterior disc osteophyte complex. No spinal canal or foraminal stenosis. IMPRESSION: 1. There is opposing endplate edema and mild enhancement at C4-5. There is also enhancement around the bilateral facet joints and within the epidural space from C3-C5. This is concerning for osteomyelitis and surrounding infectious process with possible septic synovitis of the facet joints. 2. Patient has a developmentally narrow spinal canal contributing to spinal canal stenosis throughout the cervical spine. This is most severe at C4-5 where there is severe spinal canal stenosis with underlying cord edema. Patient also has multilevel foraminal stenosis which is also most severe at C4-5. <MYCVCSECTION> Communications: 05/07/19 00:38 Call Doctor Regarding Above results, called 4W DARIEN Crawford on 05/07 00:37 (-08:00)
[2019-05-07 04:00] VITALS: BP 131/76
[2019-05-07 07:30] LABS: BASOPHILS % (AUTO) 1.2 % (0.0-2.0); EOSINOPHILS % (AUTO) 2.9 % (0.0-3.0); HEMATOCRIT 48.3 % (42.0-52.0); HEMOGLOBIN 16.4 G/DL (14.2-18.0); LYMPHOCYTES % (AUTO) 22.9 % (20.0-45.0); MEAN CORPUSCULAR VOLUME 89 FL (80-99); MONOCYTES % (AUTO) 9.7 % (1.0-10.0); NEUTROPHILS % (AUTO) 63.4 % (45.0-75.0); PLATELET COUNT 250 K/UL (150-450); RED CELL DISTRIBUTION WIDTH 11.5 % (11.6-14.8); WHITE BLOOD COUNT 10.3 K/UL (4.8-10.8)
[2019-05-07 07:56] LABS: ANION GAP 13 mmol/L (5-15); BLOOD UREA NITROGEN 12 mg/dL (7-18); CARBON DIOXIDE 23 MMOL/L (21-32); CHLORIDE 105 MMOL/L (98-107); POTASSIUM 3.9 MMOL/L (3.5-5.1); SODIUM 141 MMOL/L (136-145)
[2019-05-07 08:00] VITALS: BP 147/71
--- NOTE | 2019-05-07 08:43 | General Progress Note ---
Assessment/Plan Problem List: (1) Unsteady gait ICD Codes: R26.81 - Unsteadiness on feet SNOMED: 479719897, [id number] (2) Right leg weakness ICD Codes: R29.898 - Other symptoms and signs involving the musculoskeletal system SNOMED: 771022372, 61470446 Status: stable, progressing Assessment/Plan: pt diet neuro eval cbc bmp am dc if clear Subjective Constitutional: Reports: weakness Allergies: Coded Allergies: No Known Allergies (Unverified , 05/03/19) All Systems: reviewed and negative except above Subjective calm in bed Objective Last 24 Hour Vital Signs Date Time Temp Pulse Resp B/P (MAP) Pulse Ox O2 Delivery O2 Flow Rate FiO2 05/07/19 04:00 98.6 68 19 131/76 (94) 95 05/07/19 00:00 98.6 82 19 133/80 (97) 100 05/06/19 21:00 Room Air 05/06/19 20:00 98.0 60 20 163/83 (109) 96 05/06/19 12:00 98.8 60 20 148/80 (102) 96 05/06/19 09:00 Room Air Intake and Output 05/06/19 05/07/19 19:00 07:00 Intake Total 1420 ml 480 ml Output Total 1200 ml 1400 ml Balance 220 ml -920 ml Intake Oral 1180 ml IV Total 240 ml 480 ml Output Urine Total 1200 ml 1400 ml Laboratory Tests 05/07/19 06:55: White Blood Count 10.3, Red Blood Count 5.40, Hemoglobin 16.4, Hematocrit 48.3, Mean Corpuscular Volume 89, Mean Corpuscular Hemoglobin 30.4, Mean Corpuscular Hemoglobin Concent 34.1, Red Cell Distribution Width 11.5L, Platelet Count 250, Mean Platelet Volume 8.0, Neutrophils (%) (Auto) 63.4, Lymphocytes (%) (Auto) 22.9, Monocytes (%) (Auto) 9.7, Eosinophils (%) (Auto) 2.9, Basophils (%) (Auto ) 1.2, Sodium Level 141, Potassium Level 3.9, Chloride Level 105, Carbon Dioxide Level 23, Anion Gap 13, Blood Urea Nitrogen 12, Creatinine 1.0, Estimat Glomerular Filtration Rate > 60, Glucose Level 104, Calcium Level 9.0 Height (Feet): 5 Height (Inches): 6.00 Weight (Pounds): 164 General Appearance: alert EENT: normal ENT inspection Neck: normal alignment Cardiovascular: normal peripheral pulses, normal rate, regular rhythm Respiratory/Chest: chest wall non-tender, lungs clear, normal breath sounds Abdomen: normal bowel sounds, non tender, soft Extremities: normal inspection Edema: no edema noted Arm (L), no edema noted Arm (R), no edema noted Leg (L), no edema noted Leg (R), no edema noted Pedal (L), no edema noted Pedal (R), no edema noted Generalized Neurologic: responsive, 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
[2019-05-07] MEDS: D5 1/2NS 1,000 ML IV SCH (08:51)
[2019-05-07] MEDS ORDERED: D5 1/2NS 1000ml IV ONE (09:19)
[2019-05-07 12:00] VITALS: BP 151/82
[2019-05-07] MEDS: Cefepime HCl 1 GM in D5W 55 ML IVPB SCH ×2 (12:18→21:18)
[2019-05-07] MEDS ORDERED: Vancomycin 1.5gm/NS Premix IVPB ONE (12:30)
--- NOTE | 2019-05-07 12:41 | General Progress Note ---
Assessment/Plan Assessment/Plan: (1) Lumbar Disc bulge (2) Lumbar Radiculopathy (3) Annular Fissure (4) Cervical spinal stenosis r/o osteomyelitis Pt to be continued on Neurontin, Robaxin and Tylenol D/w Dr. Dixon and he concurred. Subjective Date patient seen: May 07, 2019 Time patient seen: 12:00 - pm Allergies: Coded Allergies: No Known Allergies (Unverified , 05/03/19) Subjective REVIEW OF SYSTEMS: Denies rash, fever, chills, sweating, dizziness, drowsiness, blurred vision, sore throat, change in hearing or weight. No shortness of breath or chest pain, palpitations, or cough. No nausea, vomiting, diarrhea, or blood in the stool or urine. No dysuria. SUBJECTIVE: Patient continues to be in bed and c/o some tingling and jolts through his body. Was seen by Neurologist and MRI of T and C spine was ordered and found to have cervical spine stenosis and possible osteomyelitis. Possible transfer to [place] for higher level of care. Recommend Neurosurgeon consultation as per [facility], d/w nurse. Objective Last 24 Hour Vital Signs Date Time Temp Pulse Resp B/P (MAP) Pulse Ox O2 Delivery O2 Flow Rate FiO2 05/07/19 04:00 98.6 68 19 131/76 (94) 95 05/07/19 00:00 98.6 82 19 133/80 (97) 100 05/06/19 21:00 Room Air 05/06/19 20:00 98.0 60 20 163/83 (109) 96 Intake and Output 05/06/19 05/07/19 19:00 07:00 Intake Total 1420 ml 480 ml Output Total 1200 ml 1400 ml Balance 220 ml -920 ml Intake Oral 1180 ml IV Total 240 ml 480 ml Output Urine Total 1200 ml 1400 ml Laboratory Tests 05/07/19 06:55: White Blood Count 10.3, Red Blood Count 5.40, Hemoglobin 16.4, Hematocrit 48.3, Mean Corpuscular Volume 89, Mean Corpuscular Hemoglobin 30.4, Mean Corpuscular Hemoglobin Concent 34.1, Red Cell Distribution Width 11.5L, Platelet Count 250, Mean Platelet Volume 8.0, Neutrophils (%) (Auto) 63.4, Lymphocytes (%) (Auto) 22.9, Monocytes (%) (Auto) 9.7, Eosinophils (%) (Auto) 2.9, Basophils (%) (Auto ) 1.2, Erythrocyte Sedimentation Rate 20, Sodium Level 141, Potassium Level 3.9 , Chloride Level 105, Carbon Dioxide Level 23, Anion Gap 13, Blood Urea Nitrogen 12, Creatinine 1.0, Estimat Glomerular Filtration Rate > 60, Glucose Level 104, Calcium Level 9.0, C-Reactive Protein, Quantitative < 0.4 Height (Feet): 5 Height (Inches): 6.00 Weight (Pounds): 164 Objective GENERAL: Alert, awake, and oriented. LUNGS: Decreased breath sounds bilaterally. HEART: S1 and S2 regular. ABDOMEN: Soft, nontender. EXTREMITIES: No cyanosis. No clubbing. No edema. NEURO: No changes. Procedure: MRI C Spine w/wo Contrast EXAM: MR Cervical Spine Without and With Intravenous Contrast CLINICAL HISTORY: WEAK TECHNIQUE: Magnetic resonance images of the cervical spine without and with intravenous contrast in multiple planes. COMPARISON: No relevant prior studies available. FINDINGS: Patient has a developmentally narrow spinal canal. Vertebral elements: Normal vertebral body height and alignment. Discs: Multilevel disc desiccation with mild disc height loss at C6-7. Marrow signal: Opposing endplate edema at C4-5. Cord: Cord signal abnormality at C4-5. Soft tissues: Mild edema around the facet joints at C4-5. Trace prevertebral edema from C2-C5. Enhancement: There is enhancement around the facet joints around C4-5. There is epidural enhancement from C3-C5 circumferentially. C2-3: Mild spinal canal stenosis secondary to posterior disc osteophyte complex and ligamentum flavum redundancy. Mild left foraminal stenosis. Left greater than right facet arthrosis. C3-4: Moderate spinal canal stenosis secondary to posterior disc osteophyte complex and ligamentum flavum redundancy. Severe left and moderate right foraminal stenosis secondary to uncovertebral upper clear facet arthrosis. C4-5: Severe spinal canal stenosis secondary to posterior disc osteophyte complex ligamentum flavum redundancy. Severe bilateral foraminal stenosis secondary to uncovertebral hypertrophy and facet arthrosis. C5-6: Mild spinal canal stenosis secondary to posterior disc osteophyte complex ligamentum flavum redundancy. Mild bilateral foraminal stenosis secondary to uncovertebral hypertrophy and facet arthrosis. C6-7: Mild spinal canal stenosis secondary to posterior disc osteophyte complex ligamentum flavum redundancy. Severe right and mild left foraminal stenosis secondary to uncovertebral hypertrophy and facet arthrosis. C7-T1: Central posterior disc osteophyte complex. No spinal canal or foraminal stenosis. IMPRESSION: 1. There is opposing endplate edema and mild enhancement at C4-5. There is also enhancement around the bilateral facet joints and within the epidural space from C3-C5. This is concerning for osteomyelitis and surrounding infectious process with possible septic synovitis of the facet joints. 2. Patient has a developmentally narrow spinal canal contributing to spinal canal stenosis throughout the cervical spine. This is most severe at C4-5 where there is severe spinal canal stenosis with underlying cord edema. Patient also has multilevel foraminal stenosis which is also most severe at C4-5. Procedure: MRI T Spine wo/w Contrast EXAM: MR Thoracic Spine Without and With Intravenous Contrast CLINICAL HISTORY: WEAK TECHNIQUE: Magnetic resonance images of the thoracic spine without and with intravenous contrast in multiple planes. COMPARISON: No relevant prior studies available. FINDINGS: Vertebrae: Unremarkable. No acute fracture. Discs/spinal canal/neural foramina: Mild degenerative changes. No spinal canal stenosis. Spinal cord: Normal signal. No abnormal enhancement. Soft tissues: Unremarkable. IMPRESSION: No acute findings. Jose D Rosario May 07, 2019 12:41
--- NOTE | 2019-05-07 13:11 | Diagnostic Imaging Report ---
EXAM: XR Chest, 1 view CLINICAL HISTORY: INFECT TECHNIQUE: Frontal view of the chest. COMPARISON: No relevant prior studies available. FINDINGS: Lungs: Unremarkable. No consolidation. Pleural space: Unremarkable. No pneumothorax. Heart: Unremarkable. No cardiomegaly. Mediastinum: Mild aortic calcification. Bones/joints: Unremarkable. IMPRESSION: No evidence of acute pulmonary disease.
[2019-05-07 16:00] VITALS: BP 130/73
[2019-05-07 20:00] VITALS: BP 135/74
--- NOTE | 2019-05-07 20:30 | Progress Note ---
DATE: 05/07/2019 SUBJECTIVE: The patient is without any change. He denies any fever or chills. He is eating well prior to his hospitalization. Now he has had negative tuberculosis tests. His grandfather may have had tuberculosis. The MRI scan on the cervical and thoracic spine were done. The MRI thoracic spine reveals no acute findings. The MRI of the cervical spine was abnormal showing significant degenerative joint disease with enhancement in the bilateral facet joints and cord edema, the most severe spinal stenosis is at C4-C5. He also has a congenitally narrow spinal canal. PHYSICAL EXAMINATION: MENTAL STATUS: Unchanged. MUSCLE EXAMINATION: Muscle bulk and tone are normal. Strength is nearly 5/5 in the upper extremities except for . Wrist extensors and triceps were 5-/5, probably worse on the right leg. The lower extremities revealed 4/5 in the right lower extremity, 4+/5 in the left lower extremity in upper motor neuron distribution. REFLEXES: +1 in the upper extremities, +3 right knee, +2.5 left knee, 0 ankles, and an upgoing toe on the right and downgoing toe on the left side. COORDINATION: [id number], [id number] testing are basically intact given the muscle weakness. SENSORY EXAMINATION: Proprioception is normal in the lower and upper extremities. Pinprick is decreased in the left lower extremity over the left thorax up to about T4. Pinprick is normal on the right side. There is some decreased pinprick in the patient's hands bilaterally, especially in the right C7 distribution. IMPRESSION: The patient will have a stat sedimentation rate and C-reactive protein and chest x-ray. Incidentally I doubt this was osteomyelitis or tuberculosis, I think it is probably just degenerative joint disease. The patient could not be transferred yesterday to the [facility] and will be transferred today. There may be slight worsening pain in the right arm. Otherwise, the cord lesion appears to be fairly stable. I am going to obtain the Infectious Disease consultation and place him on Decadron assuming the Infectious Disease concurs that there is no evidence of significant infection, which I doubt given the fact that he has no fever or chills and his white count is normal. PLAN: As above. Mauro Gaona MD DR: MAMTA JOB#: [id number] CC:
[2019-05-07] MEDS: Vancomycin 1.25gm/NS Premix IVPB SCH (22:09)
[2019-05-08] VITALS: BP 142/78
[2019-05-08 04:00] VITALS: BP 133/74
[2019-05-08] MEDS: D5 1/2NS 1,000 ML IV SCH (05:28)
[2019-05-08] MEDS: Cefepime HCl 1 GM in D5W 55 ML IVPB SCH ×2 (05:29→14:54)
[2019-05-08 06:17] LABS: BASOPHILS % (AUTO) 1.2 % (0.0-2.0); EOSINOPHILS % (AUTO) 3.2 % (0.0-3.0); HEMATOCRIT 46.3 % (42.0-52.0); HEMOGLOBIN 15.6 G/DL (14.2-18.0); LYMPHOCYTES % (AUTO) 21.5 % (20.0-45.0); MEAN CORPUSCULAR VOLUME 89 FL (80-99); MONOCYTES % (AUTO) 9.4 % (1.0-10.0); NEUTROPHILS % (AUTO) 64.7 % (45.0-75.0); PLATELET COUNT 253 K/UL (150-450); RED BLOOD COUNT 5.18 M/UL (4.70-6.10); RED CELL DISTRIBUTION WIDTH 11.5 % (11.6-14.8); WHITE BLOOD COUNT 9.6 K/UL (4.8-10.8)
[2019-05-08 06:30] LABS: ANION GAP 7 mmol/L (5-15); BLOOD UREA NITROGEN 13 mg/dL (7-18); CALCIUM 8.4 MG/DL (8.5-10.1); CARBON DIOXIDE 28 MMOL/L (21-32); CHLORIDE 105 MMOL/L (98-107); CREATININE 1.1 MG/DL (0.55-1.30); POTASSIUM 3.9 MMOL/L (3.5-5.1); SODIUM 140 MMOL/L (136-145)
[2019-05-08 08:00] VITALS: BP 158/84
--- NOTE | 2019-05-08 08:47 | General Progress Note ---
Assessment/Plan Assessment/Plan: (1) Lumbar Disc bulge (2) Lumbar Radiculopathy (3) Annular Fissure (4) Cervical spinal stenosis r/o osteomyelitis Pt to be continued on Neurontin, Robaxin and Tylenol D/w Dr. Dixon and he concurred. Subjective Date patient seen: May 08, 2019 Time patient seen: 07:30 - am Allergies: Coded Allergies: No Known Allergies (Unverified , 05/03/19) Subjective REVIEW OF SYSTEMS: Denies rash, fever, chills, sweating, dizziness, drowsiness, blurred vision, sore throat, change in hearing or weight. No shortness of breath or chest pain, palpitations, or cough. No nausea, vomiting, diarrhea, or blood in the stool or urine. No dysuria. SUBJECTIVE: Patient is in bed no signs of pain or distress. Waiting for transfer. No new complaints at this time. Objective Last 24 Hour Vital Signs Date Time Temp Pulse Resp B/P (MAP) Pulse Ox O2 Delivery O2 Flow Rate FiO2 05/08/19 04:00 97.4 57 19 133/74 (93) 99 05/08/19 00:00 98.6 60 19 142/78 (99) 98 05/07/19 21:00 Room Air 05/07/19 20:00 98.0 59 19 135/74 (94) 96 05/07/19 16:00 99.2 63 18 130/73 (92) 92 05/07/19 12:00 99.0 63 18 151/82 (105) 97 05/07/19 09:00 Room Air Intake and Output 05/07/19 05/08/19 19:00 07:00 Intake Total 1630 ml 3806.666 ml Output Total 2350 ml Balance 1630 ml 1456.666 ml Intake Oral 920 ml IV Total 630 ml 886.666 ml Other 1000 ml 2000 ml Output Urine Total 2350 ml # Voids 4 # Bowel Movements 2 Laboratory Tests 05/08/19 05:30: White Blood Count 9.6, Red Blood Count 5.18, Hemoglobin 15.6, Hematocrit 46.3, Mean Corpuscular Volume 89, Mean Corpuscular Hemoglobin 30.1, Mean Corpuscular Hemoglobin Concent 33.7, Red Cell Distribution Width 11.5L, Platelet Count 253, Mean Platelet Volume 8.1, Neutrophils (%) (Auto) 64.7, Lymphocytes (%) (Auto) 21.5, Monocytes (%) (Auto) 9.4, Eosinophils (%) (Auto) 3.2H, Basophils (%) (Auto ) 1.2, Sodium Level 140, Potassium Level 3.9, Chloride Level 105, Carbon Dioxide Level 28, Anion Gap 7, Blood Urea Nitrogen 13, Creatinine 1.1, Estimat Glomerular Filtration Rate > 60, Glucose Level 102, Calcium Level 8.4L Height (Feet): 5 Height (Inches): 6.00 Weight (Pounds): 164 Objective GENERAL: Alert, awake, and oriented. LUNGS: Decreased breath sounds bilaterally. HEART: S1 and S2 regular. ABDOMEN: Soft, nontender. EXTREMITIES: No cyanosis. No clubbing. No edema. NEURO: No changes. Jose D Rosario May 08, 2019 08:47
--- NOTE | 2019-05-08 09:11 | General Progress Note ---
Assessment/Plan Problem List: (1) Unsteady gait ICD Codes: R26.81 - Unsteadiness on feet SNOMED: 893600534, [id number] (2) Right leg weakness ICD Codes: R29.898 - Other symptoms and signs involving the musculoskeletal system SNOMED: 761262914, 77960742 Status: unchanged Assessment/Plan: pt diet neuro eval cbc bmp am va transfer Subjective Constitutional: Reports: weakness Allergies: Coded Allergies: No Known Allergies (Unverified , 05/03/19) All Systems: reviewed and negative except above Subjective calm in bed Objective Last 24 Hour Vital Signs Date Time Temp Pulse Resp B/P (MAP) Pulse Ox O2 Delivery O2 Flow Rate FiO2 05/08/19 04:00 97.4 57 19 133/74 (93) 99 05/08/19 00:00 98.6 60 19 142/78 (99) 98 05/07/19 21:00 Room Air 05/07/19 20:00 98.0 59 19 135/74 (94) 96 05/07/19 16:00 99.2 63 18 130/73 (92) 92 05/07/19 12:00 99.0 63 18 151/82 (105) 97 Intake and Output 05/07/19 05/08/19 19:00 07:00 Intake Total 1630 ml 3806.666 ml Output Total 2350 ml Balance 1630 ml 1456.666 ml Intake Oral 920 ml IV Total 630 ml 886.666 ml Other 1000 ml 2000 ml Output Urine Total 2350 ml # Voids 4 # Bowel Movements 2 Laboratory Tests 05/08/19 05:30: White Blood Count 9.6, Red Blood Count 5.18, Hemoglobin 15.6, Hematocrit 46.3, Mean Corpuscular Volume 89, Mean Corpuscular Hemoglobin 30.1, Mean Corpuscular Hemoglobin Concent 33.7, Red Cell Distribution Width 11.5L, Platelet Count 253, Mean Platelet Volume 8.1, Neutrophils (%) (Auto) 64.7, Lymphocytes (%) (Auto) 21.5, Monocytes (%) (Auto) 9.4, Eosinophils (%) (Auto) 3.2H, Basophils (%) (Auto ) 1.2, Sodium Level 140, Potassium Level 3.9, Chloride Level 105, Carbon Dioxide Level 28, Anion Gap 7, Blood Urea Nitrogen 13, Creatinine 1.1, Estimat Glomerular Filtration Rate > 60, Glucose Level 102, Calcium Level 8.4L Height (Feet): 5 Height (Inches): 6.00 Weight (Pounds): 164 General Appearance: lethargic EENT: normal ENT inspection Neck: normal alignment Cardiovascular: normal peripheral pulses, normal rate, regular rhythm Respiratory/Chest: chest wall non-tender, lungs clear, normal breath sounds Abdomen: normal bowel sounds, non tender, soft Extremities: normal inspection Edema: no edema noted Arm (L), no edema noted Arm (R), no edema noted Leg (L), no edema noted Leg (R), no edema noted Pedal (L), no edema noted Pedal (R), no edema noted Generalized Neurologic: motor weakness Skin: normal pigmentation, warm/dry Oscar Lujan DO May 08, 2019 09:11
[2019-05-08 12:00] VITALS: BP 130/79
[2019-05-08] MEDS: Vancomycin 1.25gm/NS Premix IVPB SCH (12:15)
--- NOTE | 2019-05-08 12:24 | Consultation ---
History of Present Illness General Date patient seen: May 08, 2019 Chief Complaint: General Complaint Present Illness HPI 58 y/o M with hx of HTN, asthma, Dupage War syndrome, chronic fatigue syndrome, anxiety disorder, fibromyalgia, former smoker, former ETOH abuse presented to ED on 05/03 with R leg weakness, problems with balance and ambulation. Endorses shooting pain in leg from the foot to his hip and lower back discomfort. Little to none neck or midback discomfort; denied any back injury. Also b/l arm numbness. +Tinnitus . Denied memory loss, seizures, dobule vision, dysphagia/dysatrhtia, loss of bladder/bowel control, f/c, n/v/d. Allergies: Coded Allergies: No Known Allergies (Unverified , 05/03/19) Patient History Healthcare decision maker N Resuscitation status Full Code Advanced Directive on File Patient History Narrative Pmhx: as above Shx: tobacco abuse, quit in 2008 of about 7-1/2 pack years. He used to drink about 4 to 5 beers at a time and quit last year. He denies any illegal drug use. . He has one child, in good health. He was in the [employer] for 15-1/2 years with an honorable discharge. He is a staff sergeant. Fhx: non contributory Review of Systems All Other Systems: negative except mentioned in HPI Physical Exam Physical Exam Narrative GENERAL: Calm in bed, oriented x3, no acute distress. CARDIOVASCULAR: No murmur. LUNGS: Distant and clear. ABDOMEN: Positive bowel sound positive. Nontender. Nondistended. EXTREMITIES: No cyanosis or edema. NEUROLOGIC: The patient moves all extremities, slightly weak. Last 24 Hour Vital Signs Date Time Temp Pulse Resp B/P (MAP) Pulse Ox O2 Delivery O2 Flow Rate FiO2 05/08/19 09:00 Room Air 05/08/19 08:00 98.9 70 18 158/84 (108) 96 05/08/19 04:00 97.4 57 19 133/74 (93) 99 05/08/19 00:00 98.6 60 19 142/78 (99) 98 05/07/19 21:00 Room Air 05/07/19 20:00 98.0 59 19 135/74 (94) 96 05/07/19 16:00 99.2 63 18 130/73 (92) 92 05/07/19 12:00 99.0 63 18 151/82 (105) 97 Intake and Output 05/07/19 05/08/19 19:00 07:00 Intake Total 1630 ml 3806.666 ml Output Total 2350 ml Balance 1630 ml 1456.666 ml Intake Oral 920 ml IV Total 630 ml 886.666 ml Other 1000 ml 2000 ml Output Urine Total 2350 ml # Voids 4 # Bowel Movements 2 Laboratory Tests Test 05/08/19 05:30 White Blood Count 9.6 K/UL (4.8-10.8) Red Blood Count 5.18 M/UL (4.70-6.10) Hemoglobin 15.6 G/DL (14.2-18.0) Hematocrit 46.3 % (42.0-52.0) Mean Corpuscular Volume 89 FL (80-99) Mean Corpuscular Hemoglobin 30.1 PG (27.0-31.0) Mean Corpuscular Hemoglobin Concent 33.7 G/DL (32.0-36.0) Red Cell Distribution Width 11.5 % (11.6-14.8) L Platelet Count 253 K/UL (150-450) Mean Platelet Volume 8.1 FL (6.5-10.1) Neutrophils (%) (Auto) 64.7 % (45.0-75.0) Lymphocytes (%) (Auto) 21.5 % (20.0-45.0) Monocytes (%) (Auto) 9.4 % (1.0-10.0) Eosinophils (%) (Auto) 3.2 % (0.0-3.0) H Basophils (%) (Auto) 1.2 % (0.0-2.0) Sodium Level 140 MMOL/L (136-145) Potassium Level 3.9 MMOL/L (3.5-5.1) Chloride Level 105 MMOL/L (98-107) Carbon Dioxide Level 28 MMOL/L (21-32) Anion Gap 7 mmol/L (5-15) Blood Urea Nitrogen 13 mg/dL (7-18) Creatinine 1.1 MG/DL (0.55-1.30) Estimat Glomerular Filtration Rate > 60 mL/min (>60) Glucose Level 102 MG/DL (74-106) Calcium Level 8.4 MG/DL (8.5-10.1) L Height (Feet): 5 Height (Inches): 6.00 Weight (Pounds): 164 Medications Current Medications Medications (Trade) Dose Ordered Sig/Elisa Route PRN Reason Start Time Stop Time Status Last Admin Dose Admin Acetaminophen (Tylenol) 650 mg Q4H PRN ORAL Mild Pain/Temp > 100.5 05/04/19 09:15 06/03/19 09:14 05/07/19 18:29 Cefepime HCl 1 gm/ Dextrose 55 ml @ 110 mls/hr EVERY 8 HOURS IVPB 05/07/19 12:00 05/14/19 11:59 05/08/19 05:29 Dextrose/Sodium Chloride 1,000 ml @ 60 mls/hr [id number] IV 05/03/19 21:30 06/02/19 21:29 05/08/19 05:28 Gabapentin (Neurontin) 100 mg THREE TIMES A DAY ORAL 05/04/19 09:15 06/03/19 09:14 05/08/19 09:39 Gadobutrol (Gadavist) 7.5 mmol NOW PRN IV Radiology Procedure 05/05/19 19:15 05/09/19 19:08 Gadobutrol (Gadavist) 7.5 mmol NOW PRN IV Radiology Procedure 05/05/19 19:15 05/09/19 19:11 Methocarbamol (Robaxin) 500 mg Q8H PRN ORAL muscle spasm 05/04/19 09:15 06/03/19 09:14 Vancomycin HCl (Vanco rx to dose) 1 ea DAILY PRN MISC Per rx protocol 05/07/19 10:30 06/06/19 10:29 Vancomycin/Sodium Chloride 275 ml @ 183.333 mls/hr Q12HR@1100,2300 IVPB 05/07/19 23:00 05/12/19 22:59 05/07/19 22:09 Assessment/Plan Assessment/Plan: Abx: IV Vancomcyin 05/07- CEfepime 05/07- Assessment: R leg weakness- C4-C5 vertebral and spine cord enhancement- seems likely DJD although infection possible but patient afebrile, no leukocytosis and inflammatory markers normal. Blood cultures are pending at this point Ambulatory dysfunction -cervical spine MRI: There is opposing endplate edema and mild enhancement at C4-5. There is also enhancement around the bilateral facet joints and within the epidural space from C3-C5. This is concerning for osteomyelitis and surrounding infectious process with possible septic synovitis of the facet joints. Patient has a developmentally narrow spinal canal contributing to spinal canal stenosis throughout the cervical spine. This is most severe at C4- 5 where there is severe spinal canal stenosis with underlying cord edema. Patient also has multilevel foraminal stenosis which is also most severe at C4- 5. -Thoracic spine MRI: no acute findings -Lumbar spine MRI: Minimal circumferential annular bulge and high intensity zone of the L5-S1 disc, without any significant spinal stenosis or neural foraminal stenosis. Otherwise essentially unremarkable exam. Incidental finding of left S3 nerve root sleeve cysts -ESR 20, CRP <0.4 Afebrile No leukocytosis -CXR: No evidence of acute pulmonary disease. HTN asthma Dupage War syndrome chronic fatigue syndrome anxiety disorder fibromyalgia former smoker former ETOH abuse Plan: -Continue empiric IV vancomycin and Cefepime #2 for now -f/u cx -Monitor CBC/CMP, temperatures -f/u bcx -2d echo -ok to given steroids; discussed with neurology -awaiting transfer to [facility] for higher care and neurosurgery evaluation Thank you for this consultation. Will continue to follow along with you. Discussed with Mackenzie Marshall M.D. May 08, 2019 12:24
[2019-05-08] MEDS ORDERED: Tubing IV Secondary IV ONE (15:46)
[2019-05-08 16:00] VITALS: BP 120/62
[2019-05-08] MEDS ORDERED: GABAPENTIN100 MG ORAL (16:13)
[2019-05-08] MEDS ORDERED: CEFEPIME 11 GM/50 ML IV (16:14)
[2019-05-08] MEDS ORDERED: VANCOMYCIN1.5 GM/300 IV (16:15)
--- NOTE | 2019-05-09 08:17 | Discharge Summary ---
Discharge Summary Discharge Summary _ Charge summary DATE OF ADMISSION: 05/03/1912 DATE OF DISCHARGE: [] 05/08/2019 DISCHARGED BY: Dr. Lujan REASON FOR ADMISSION: [] 58 years old male with past medical history of fibromyalgia, childhood asthma, presented to emergency room for evaluation from home due to generalized weakness. Patient reported weakness in lower legs. He reported inability to walk and falling episodes when trying to walk. He denied back pain. He denied fever and chills. He denies slurred speech or facial droop. Upon evaluation vital signs reveal slightly elevated blood pressure 150/76 otherwise were stable. Laboratory work-up revealed no leukocytosis stable hemoglobin hematocrit and platelet count. Stable electrolytes. BUN 12, creatinine 1.2. Glucose 101. Stable LFT. Albumin 3.8. Urinalysis revealed no evidence of of urinary tract infection. MRI of the lumbar spine revealed minimal circumferential annular bulge and high intensity zone of the L5-S1 disc without any significant spinal stenosis or neural foraminal stenosis. Otherwise essentially unremarkable exam. No cord compression. Patient was unable to bear weight on the right lower extremity and had noticeable neurological deficit not safe for discharge patient subsequently admitted for unsteady gait and right leg weakness. , More in the right leg. CONSULTANTS: hotel operations manager neurologist Dr. Riggins pulmonary ID specialist Dr. Adam GI specialist vice provost voice writing reporter/oncologist surgery psychiatrist Pain specialist Dr. Dixon HOSPITAL COURSE: [] Patient admitted to medical surgical floor. Neurology consult was requested. Neurologist recommended per neurologist patient likely had myelopathy patient subsequently undergone MRI of the cervical and thoracic spine. MRI of the thoracic spine was negative. MRI of the cervical spine revealed... Neurologist doubted osteomyelitis or tuberculosis is as thought it was most probably degenerative joint disease. Patient could not be transferred to the [facility] initially patient reported pain management was addressed as per pain specialist. Cord lesion appeared to be fairly stable. ID consult was requested patient started on Decadron CRP within normal limits ESR within normal limits. Blood culture revealed no evidence of growth. Chest x-ray revealed no evidence of acute pulmonary disease. Pain management was addressed as per pain specialist recommendation. ID specialist seen and evaluated patient prior to transfer. Patient presented with right leg weakness and had a C4-C5 vertebral and spinal cord enhancement likely DJD of the infection was possible. Patient remained afebrile no leukocytosis inflammatory markers normal blood culture negative. Unlikely infection. At this time ID specialist recommended continue empiric vancomycin and cefepime she recommended to obtain echo cardiogram and clear patient to start on the steroid discussion between ID specialist and neurology to place. Patient subsequently was transferred to [facility] for higher level of care and neurosurgery evaluation. FINAL DIAGNOSES: 1. [] Right leg weakness C4-5 vertebral and spinal cord enhancement rule out osteomyelitis Probably/likely DJD Ambulatory dysfunction/unsteady gait Lumbar disc bulge Lumbar radiculopathy Annular fissure Cervical spine stenosis Fibromyalgia History of EtOH abuse Former smoker Anxiety disorder Asthma DISCHARGE MEDICATIONS: See Medication Reconciliation list. DISCHARGE INSTRUCTIONS: [] I have been assigned to dictate discharge summary for this account. I was not involved in the patient's management. Neena Kathleen NP May 09, 2019 08:17
== END 2019-05-08 17:51 | DRG 552 ==
LOC: EDBD 14:31 → EMR 15:57 → 4E 18:25 → EDBEDREQ 18:57
DX: M51.16 Intervertebral disc disorders with radiculopathy, lumbar region (principal); G83.11 Monoplegia of lower limb affecting right dominant side; M79.7 Fibromyalgia; M47.812 Spondylosis without myelopathy or radiculopathy, cervical region; I10 Essential (primary) hypertension; M48.02 Spinal stenosis, cervical region; J45.909 Unspecified asthma, uncomplicated; R26.81 Unsteadiness on feet; F41.9 Anxiety disorder, unspecified; F10.21 Alcohol dependence, in remission; R53.82 Chronic fatigue, unspecified; Z87.891 Personal history of nicotine dependence
CPT/HCPCS: 36415; 71045; 72148; 72156; 72157; 80048; 80053; 81003; 82607; 85025; 85651; 86140; 87040; 93306; 96360; 99285; A9585